=== PATIENT | male | born 1985 | race Caucasian/White ===

== ENCOUNTER 2023-02-25 08:06 | Outpatient (CLI) | payer MEDICAID | END 2023-02-25 23:59 | disposition critical access hospital (66) | LOC: EMS 08:06 | DX: R10.9 Unspecified abdominal pain (principal); R68.83 Chills (without fever); R11.0 Nausea; R46.89 Other symptoms and signs involving appearance and behavior; R40.0 Somnolence | CPT/HCPCS: A0425; A0429; A0999 ==

== ENCOUNTER 2023-02-25 08:30 | Emergency (ER) | payer MEDICAID ==
[2023-02-25] MEDS ORDERED: SODIUM CHLORIDE 0.9% 1,000 ML IV STA (08:38)
[2023-02-25] MEDS ORDERED: ONDANSETRON 4 MG/2 ML VIAL IVP STA (08:40)
[2023-02-25] MEDS ORDERED: ONDANSETRON ODT 4 MG TABLET TL STA (08:59)
--- NOTE | 2023-02-25 09:31 | ED Physician Documentation ---
History of Present Illness - Stated complaint Stated Complaint: ABD PX - Chief complaint Chief Complaint: Abd Pain - History obtained from History obtained from: Patient, EMS - Additonal information Additional information: Patient is a 37-year-old male with a history of opiate dependence presenting for evaluation of nausea and feeling withdrawal symptoms from opiates. Patient was at [facility] for methamphetamine and opiate Addiction. He reports last using fentanyl on 23 February which is the same day he presented to [facility]. This morning he said he was having more withdrawal symptoms and was yelling And so staff told him he had to leave. EMS states that there was police also present and that he has been minimally cooperative for the paramedics with attempting to assess him. Per records from [facility] he has been getting Suboxone With his last dose being this morning. He has additionally been getting gabapentin, dicyclomine, hydroxyzine, methocarbamol and promethazine all which were given to him this morning. Review of Systems Constitutional: denies: Fever Cardiac: denies: Chest pain / pressure Respiratory: denies: Dyspnea GI: reports: Abdominal Pain, Nausea : denies: Dysuria, Hematuria PD PAST MEDICAL HISTORY - Past Medical History Past Medical History: No Psych: Anxiety, Post traumatic stress disorder - Past Surgical History Past Surgical History: No - Allergies Allergies/Adverse Reactions: Allergies Allergy/AdvReac Type Severity Reaction Status Date / Time No Known Drug Allergies Allergy Verified 02/25/23 08:54 - Social History Does the pt smoke?: Yes Smoking Status: Current every day smoker Does the pt have substance abuse?: Yes Substance Use and Type: Meth, Ecstasy, Other PD ED PE NORMAL - General General: Alert and oriented X 3, No acute distress, Other (Well-developed, thin appearing) - HEENT HEENT: Atraumatic, PERRL, EOMI, Other (Poor dentition) - Neck Neck: Supple, no meningeal sign - Cardiac Cardiac: RRR, No murmur - Respiratory Respiratory: No respiratory distress, Clear bilaterally - Abdomen Abdomen: Soft, Non tender - Derm Derm: Warm and dry - Neuro Neuro: Alert and oriented X 3, No motor deficit, Normal speech Results - Vitals Vitals: Vital Signs - 24 hr 02/25/23 02/25/23 08:50 10:25 Temperature 36.8 C Heart Rate 61 52 L Respiratory 14 21 Rate Blood Pressure 101/68 99/66 O2 Saturation 99 99 Oxygen O2 Source Room air PD Medical Decision Making - ED course Complexity details: re-evaluated patient ED course: 919 - Patient has refused labs as well as an IV. Has also refused phlebotomy to just draw labs without an IV.He is sleepy but easily awakeable.He clearly stated to phlebotomy "get away from me". 1036 - Patient has been allowed to rest here. Has not voiced any complaints. I have reevaluated the patient. I have asked what kind of help he is looking forward today as He is not allowing us to check labs or give IV fluids to see if this will help make him feel better. He states he does not know. I ask if he would like to call his parents for a ride and he states yes. This time I do not see signs of an emergent medical condition. Patient appears alert and oriented and not intoxicated. Patient presenting for evaluation after being kicked out of [facility] He was receiving treatment for methamphetamine and opiate addiction.On arrival patient had reported feeling nauseous and having abdominal pain. His abdominal exam is benign. Patient was not cooperative and would not allow us to check labs or administer any IV medications. He was allowed to rest and reevaluated with multiple chances given to participate in care and allow us to assess him but continually refused. He was conversant, ambulatory and appeared to be in stable condition. At this time I do not see signs of Any emergent medical conditions. Therefore patient will be discharged.Law enforcement did arrive on scene as patient initially refused to leave the emergency department was eventually did and was able to ambulate on his own carrying his belongings. Departure - Departure Disposition: 01 Home, Self Care Clinical Impression: Substance abuse, Nausea Condition: Stable Instructions: ED Drug Abuse General Comments: Return to the emergency department with any worsening symptoms. [facility] [address] [place] [address] Main [facility] offers a monitored and safe setting for individuals withdrawing from alcohol and drugs, and counseling for individuals experiencing a mental health crisis. All services are provided in a 10-bed facility where intensive medical monitoring is required along with stabilization services. The goal of these services is to assess a clients mental health and substance use disorder related needs, and assist them in accessing the services they need to recover. Discharge Date/Time: 02/25/23 11:08
[2023-02-25 10:27] VITALS: BP 99/66
== END 2023-02-25 11:08 | disposition home or self-care (01) ==
LOC: ED 08:30
DX: F19.10 Other psychoactive substance abuse, uncomplicated (principal); R11.0 Nausea; F17.200 Nicotine dependence, unspecified, uncomplicated
CPT/HCPCS: 99283; Q0162; 80053; 83690; 85025